=== PATIENT | male | born 1995 | race Caucasian/White ===

== ENCOUNTER 2021-01-16 16:18 | Outpatient (CLI) | payer OTHER, SELFPAY | END 2021-01-16 16:19 | disposition home or self-care (01) | LOC: ANHCOVIDVC 16:19 | DX: Z23 Encounter for immunization (principal) | CPT/HCPCS: 0001A; 91300 ==

== ENCOUNTER 2021-02-06 16:17 | Outpatient (CLI) | payer OTHER, SELFPAY | END 2021-02-06 16:18 | disposition home or self-care (01) | LOC: ANHCOVIDVC 16:17 | DX: Z23 Encounter for immunization (principal) | CPT/HCPCS: 0002A; 91300 ==